=== PATIENT | female | born 2000 | race Two or more races ===

== ENCOUNTER 2025-05-13 16:17 | Emergency (ER) | payer MEDICAID ==
[~2025-05-13] VITALS: Ht 160 cm; Wt 59.0 kg
[2025-05-13 16:21] VITALS: BP 139/75
[2025-05-13] MEDS ORDERED: DICYCLOMINE HCL 20 MG/2 ML AMPUL IM STA (16:22)
[2025-05-13] MEDS: IV NORMAL SALINE 1000 ML BAG IV ONE ×2 (16:43→19:01)
[2025-05-13] MEDS ORDERED: ONDANSETRON 4 MG/2 ML VIAL ONE ×3 (16:46→18:55)
[2025-05-13 16:48] LABS: PLATELET COUNT (AUTO) 297 K/uL (179-408); RED BLOOD CELL COUNT(AUTO) 4.64 MIL/uL (3.63-4.92); RED CELL DISTRIBUTION WIDTH 12.6 % (12.3-17.7); WHITE BLOOD COUNT (AUTO) 12.5 K/uL (3.8-11.8)
[2025-05-13] MEDS: ONDANSETRON 4 MG/2 ML VIAL IV ONE ×3 (16:50→19:00)
[2025-05-13 16:55] LABS: CREATININE 0.8 mg/dL (0.6-1.3); SODIUM SERUM 140.0 mmol/L (136-145); UREA NITROGEN, BLOOD 11.0 mg/dL (7-18)
[2025-05-13 17:01] LABS: ASPARTATE AMINOTRANSFERASE 12.0 U/L (15-37); TOTAL PROTEIN, SERUM 7.9 g/dL (6.4-8.2)
[2025-05-13] MEDS ORDERED: DICYCLOMINE HCL LIQ 10 MG/5 ML UDC ONE (17:05)
[2025-05-13 17:07] LABS: ETHANOL < 3 MG/DL (0-10)
[2025-05-13] MEDS: DICYCLOMINE HCL 10 MG CAPSULE PO STA (17:07)
[2025-05-13 17:29] LABS: *BILIRUBIN,URIN NEGATIVE (NEGATIVE); *BLOOD, URINE NEGATIVE (NEGATIVE); *CLARITY,URINE CLEAR (CLEAR); *COLOR,URINE YELLOW (YELLOW); *KETONES,URINE 3+ (NEGATIVE); *PROTEIN,URINE NEGATIVE (NEGATIVE); *UROBILINOGEN,URINE 0.2 E.U./dl (NORMAL); NITRITE, URINE NEGATIVE (NEGATIVE); UGLUCOSE NEGATIVE (NEGATIVE)
[2025-05-13 17:32] LABS: LEUKOCYTE ESTERASE ,URINE NEGATIVE (NEGATIVE)
[2025-05-13 17:33] LABS: *URINE HCG, QUAL NEGATIVE (NEGATIVE)
[2025-05-13 17:39] LABS: *AMPHETAMINE, URINE NEGATIVE (NEGATIVE); *BARBITURATE, URINE NEGATIVE (NEGATIVE); *BENZODIAZEPINE, URINE NEGATIVE (NEGATIVE); *CANNABINOID, URINE POSITIVE (NEGATIVE); *COCCAINE, URINE NEGATIVE (NEGATIVE); *OPIATE, URINE NEGATIVE (NEGATIVE); *PHENCYCLIDINE SCREEN,URINE NEGATIVE (NEGATIVE); FENTANYL, URINE NEGATIVE (NEGATIVE)
[2025-05-13] MEDS ORDERED: MORPHINE SULFATE 4 MG/1 ML DISP.SYRIN ONE (18:17)
[2025-05-13] MEDS: MORPHINE SULFATE 4 MG/1 ML DISP.SYRIN IV ONE (18:22)
[2025-05-13] MEDS ORDERED: HYDROMORPHONE 1 MG/1 ML DISP.SYRIN ONE (18:55)
[2025-05-13] MEDS: HYDROMORPHONE 1 MG/1 ML DISP.SYRIN IV ONE (18:59)
[2025-05-13] MEDS ORDERED: HYDR-4209 PO (19:26)
[2025-05-13] MEDS ORDERED: ONDA4TAB5 PO (19:26)
[2025-05-13] MEDS ORDERED: DICY10CA13 PO (19:26)
[2025-05-13 20:00] VITALS: BP 134/72; TEMP 98; O2SAT 99
== END 2025-05-13 20:00 | disposition home or self-care (01) ==
LOC: ER 16:38
DX: R10.33 Periumbilical pain (principal); R11.2 Nausea with vomiting, unspecified; N83.201 Unspecified ovarian cyst, right side; F12.90 Cannabis use, unspecified, uncomplicated; Z88.7 Allergy status to serum and vaccine; Z79.899 Other long term (current) drug therapy
CPT/HCPCS: 80076; 80048; 81001; 84703; 83690; 85025; 36415; 74176; 76856; 99285; 96361; 96374; 96375; 96376; 80320; 80307; J0500; J2405 ×3; J1171; J2270; J7040 ×2; A4606; A4663; G0480